=== PATIENT | male | born 1930 | race Caucasian/White ===

== ENCOUNTER 2016-05-13 19:16 | Emergency (ER) | payer MEDICARE, OTHER ==
[~2016-05-13] VITALS: Ht 176.5 cm; Wt 90.9 kg
[2016-05-13 19:22] VITALS: BP 137/77; PULSE 64; RESP 17; O2SAT 95
--- NOTE | 2016-05-13 19:39 | ED.REPORT ---
HPI-Abd Pain M 40 and Over Date of Service May 13, 2016 ED Provider: Norbert Funk MD Patient is a 86 year old male with a history of ulcerative colitis who presents to the ED after he developed abdominal pain, vomiting, and diarrhea this morning. His pain is cramping in character and extends throughout his entire lower abdomen. His abdomen is more distended than usual. He reports multiple episodes of diarrhea (4x today) and vomiting since onset. His last episode of diarrhea was at 5pm. He repots persistent nausea. He took the medication he had at home for nausea, but he vomited it up. Patient was unable to hold down any fluids. The patient states that he had a similar brief episode 3 weeks ago, but it resolved very quickly. He also reports having a stabbing pain to his right lower back. Patient also admits to diaphoresis and subjective fever but denies any bloody stool or hematemesis. He denies any previous abdominal surgeries. The patient is meant to fly down to [place] tomorrow morning. Nursing Notes Stated Complaint: VOMITING/DIARRHEA Chief Complaint: Male Abdominal Pain Nursing Notes Reviewed: Yes Allergies: Coded Allergies: isometheptene (Verified Allergy, Unknown, 05/13/16) acetaminophen (Verified Adverse Reaction, Intermediate, Nausea,Vomiting, ) dichloralphenazone (Verified Adverse Reaction, Intermediate, Nausea, Vomiting, 05/13/16) Scheduled PRN Ondansetron ODT (Zofran ODT) 4 Mg Tablet 4 MG PO Q4H PRN PRN For Nausea General Time Seen by MD: 19:37 Chief Complaint Abdominal pain, Diarrhea moderate, Other (vomiting) Hx Obtained From: Patient Arrived By: Walk-in Sudden in Onset?: No Onset Occurred: 17 - 20 hours ago Symptom Duration: Since onset Progression since Onset: Waxes and wanes Location: : Abdomen lower Quality: Dull, Painful Severity: Current: Moderate Severity: Maximum: Moderate Recent Healthcare: No recent doctor visit, No recent hospitalization Similar Sx Previous: Yes Past Medical History Past Medical History ulcerative colitis hypothyroidism kidney stones Denies: Diabetes mellitus Denies: Renal failure Past Surgical History bilateral knee surgery elbow surgery TURP right ulnar nerve transposition Smoking History Former Smoker Social History Alcohol Use: 1-3 per day Other Social History: Good social support, , Local resident Ambulatory Status Independent Review of Systems Constitutional: Reports: Fever (subjective), Denies: Chills GI: Reports: Abdominal pain, Diarrhea, Nausea, Vomiting, Denies: Bloody/tarry stool, Hematemesis, Hematochezia Male: Reports Flank pain Complete sys rev & neg: except as marked. Skin: Reports Diaphoresis Physical Exam Initial Vital Signs Vital Signs (First) Date Time Temp Pulse Resp B/P Pulse Ox O2 Delivery O2 Flow Rate FiO2 05/13/16 19:22 36.5 64 17 137/77 95 Initial VS: Reviewed Head / Eyes: Normocephalic, PERRL ENT: Mucous membranes moist, Conjunctiva normal, No scleral icterus Neck: Full range of motion Extremities: Vascular intact, Neuro intact, No swelling Skin: Warm, Dry, No cyanosis Neurologic: Alert, Oriented, Nonfocal Psychiatric: Mood/affect normal, Behavior normal, Normal thought content General/Constitutional: Awake, Alert, No acute distress Respiratory / Chest: Breath sounds NL, Breath sounds = bilat, No respiratory distress, No rales, No rhonchi, No wheezing Cardiovascular: Heart rate NL, Regular rhythm, Heart sounds NL, No gallop, No murmurs, No rubs Abdomen: Soft, No guarding, No rebound Tenderness/Guarding/Rebound: Positive: Tender diffuse Bowel Sounds / Distention: Positive: Bowel sounds hyperactive, Distention mild Back: Atraumatic, No CVA tenderness Interpretation & Diagnostics Interpretation & Diagnostics: Urine Dip: pH 5, all else within normal limits. Lab Results Interpretation Result Diagram: 05/13/16200405/13/162004 Test 05/13/16 20:05 05/13/16 22:15 White Blood Count 7.0th/mm3 (3.8-10.1) Red Blood Count 4.17mil/mm3 (4.40-5.80) Hemoglobin 13.1g/dL (13.8-17.2) Hematocrit 38.2% (41.0-50.0) Mean Corpuscular Volume 91.6fL (81-100) Mean Corpuscular Hemoglobin 31.4pg (27.0-35.0) Mean Corpuscular Hemoglobin Concent 34.3% (32.0-37.0) Red Cell Distribution Width 15.0% (12.3-15.4) Platelet Count 139bil/L (150-400) Neutrophils (%) (Auto) 78.8% (40-74) Lymphocytes (%) (Auto) 6.3% (14-46) Monocytes (%) (Auto) 13.5% (4-12) Eosinophils (%) (Auto) 0.9% (0-5) Basophils (%) (Auto) 0.1% (0-3) Sodium Level 140mEq/L (134-144) Potassium Level 4.3mEq/L (3.5-5.2) Chloride Level 104mEq/L (97-108) Carbon Dioxide Level 24mmol/L (18-29) Blood Urea Nitrogen 13mg/dL (8-27) Creatinine 0.90mg/dL (0.76-1.27) Estimat Glomerular Filtration Rate 85mL/min (>59) Glucose Level 163mg/dL (60-99) Calcium Level 9.0mg/dL (8.5-10.1) Magnesium Level 2.2mg/dL (1.6-2.6) Total Bilirubin 0.6mg/dL (0.0-1.2) Aspartate Amino Transf (AST/SGOT) 23U/L (0-50) Alanine Aminotransferase (ALT/SGPT) 15U/L (0-44) Alkaline Phosphatase 82U/L (25-160) Total Protein 6.9g/dL (6.4-8.4) Albumin 4.2g/dL (3.4-5.0) Lipase 18U/L (13-60) Hold [employer] Top Tube Received (Received) Urine Color Straw (YELLOW) Urine Appearance Clear (CLEAR,HAZY) Urine pH 6.0 (5.0-8.0) Urine Specific [place] 1.005 (1.003-1.035) Urine Protein Negativemg/dL (NEG,TRACE) Urine Glucose (UA) Negativemg/dL (NEGATIVE) Urine Ketones Negativemg/dL (NEGATIVE) Urine Occult Blood Trace (NEGATIVE) Urine Nitrite Negative (NEGATIVE) Urine Bilirubin Negative (NEGATIVE) Urine Urobilinogen Normalmg/dL (NORMAL) Urine Leukocyte Esterase Negative (NEGATIVE) Urine RBC 0-2/hpf (0-2) Urine WBC 0-5/hpf (0-5) Urine Epithelial Cells Occasional/hpf (NONE-MOD) Urine Crystals None seen (NONE SEEN) Urine Bacteria None/hpf (NONE-FEW) Urine Hyaline Casts None/lpf (NONE) Urine Granular Casts None seen (NONE SEEN) Urine Waxy Casts None seen (NONE SEEN) Urine Red Blood Cell Casts None seen (NONE SEEN) Urine White Blood Cell Casts None seen (NONE SEEN) Urine Mucus None seen (None Seen) Urine Trichomonas None seen (NONE SEEN) Urine Yeast None (NONE SEEN) Urine Culture Reflexed Not indicated CT Abd / Pelvis Interpretation IMPRESSION: 1. Diverticulosis without acute diverticulitis. 2. No definite acute intra-abdominal abnormality to correlate with patient's pain symptoms. Dictated by: Timothy Browne M.D. on 05/13/2016 at 22:03 Approved by: Timothy Browne M.D. on 05/13/2016 at 22:03 Study type: Abdominal CT no contrast Interpretation / Wet Read by: Interpret - Radiologist Re-Eval/Medical Decision Source of Hx: Old records Time of Eval: 23:15 Patient Status: Condition improved, Drinking well without N/V Re-Evaluation/Progress Note: Rechecked the patient, who was informed that his labs and CT scan were normal. He will be given nausea medication. Patient understands and agrees with the plan to be discharged home. Discharge instructions and follow-up discussed. All questions were addressed. Return to the ED warnings given. Counseled Regarding: Diagnosis, Lab results, Need for follow-up, When/why to return to ED Discharge & Departure Primary Impression: Generalized abdominal pain Additional Impression: Gastroenteritis Disposition: Home Vital Signs - All Vital Signs Date Time Temp Pulse Resp B/P Pulse Ox O2 Delivery O2 Flow Rate FiO2 05/13/16 19:22 36.5 64 17 137/77 95 )( All Prior VS Reviewed: Yes Condition: Stable Patient Instructions: Acute Diarrhea (ED), Acute Nausea and Vomiting (ED) Additional Instructions: Emergency department evaluation today included interview, examination, review of old records, CT scan of your abdomen, and laboratory evaluation. Use Ondansetron as needed for nausea. You can use Imodium for your diarrhea. Make sure you drink plenty of fluids. Follow-up with Dr. Elaine if your symptoms do not improve in the next day. Return to the emergency department if you developed any new or concerning symptoms. Referrals: Abiodun Elaine MD (PCP) Scribe Attestation Portions of this note were transcribed by Eneida Alfred. I, Dr. Funk personally performed the history, physical exam and medical decision-making; I reviewed and confirmed the accuracy of the information in the transcribed note. Signed by: Dwight Cronin, 05/13/2016 [id number] copies to: Abiodun Elaine MD, Donald L MD May 13, 2016 19:39 Eneida Alfred May 13, 2016 19:52
[2016-05-13] MEDS ORDERED: Ondansetron 2 mg/mL 2 mL Inj IVPUSH PRN (19:55)
[2016-05-13] MEDS ORDERED: HYDROmorphone 0.5 mg/0.5 mL iSecure Syringe IVPUSH PRN (19:55)
[2016-05-13 20:14] LABS: BASOPHILS % (AUTO) 0.1 % (0-3); EOSINOPHILS % (AUTO) 0.9 % (0-5); MONOCYTES % (AUTO) 13.5 % (4-12); Mean Corpuscular Hemoglobin 31.4 pg (27.0-35.0); Mean Corpuscular Volume 91.6 fL (81-100); NEUTROPHILS % (AUTO) 78.8 % (40-74); Platelet Count 139 bil/L (150-400)
[2016-05-13] MEDS ORDERED: 0.9% Sodium Chloride 1,000 ML IV ONE (20:25)
[2016-05-13 20:34] LABS: Magnesium 2.2 mg/dL (1.6-2.6)
--- NOTE | 2016-05-13 22:05 | DRSVH ---
PROCEDURE: CT ABDOMEN AND PELVIS WITH CONTRAST ([id number]) INDICATIONS: Abdominal pain. TECHNIQUE: After the administration of oral and intravenous contrast, 5 mm thick sections acquired from the diap hragms to the symphysis. 5 mm thick coronal and sagittal reformats were performed. For radiation do se reduction, the following was used: automated exposure control, adjustment of mA and/or kV accordi ng to patient size. COMPARISON: [facility], CT, ABD/PELVIS W/CON ([facility]), 04/05/2014, 16:39. FINDINGS: Image quality: There is extensive metallic streak artifact associated with patient's right hip prosth esis limiting evaluation. ABDOMEN: Lung bases: There is bibasilar atelectasis and scarring in the lung bases. Heart size is normal. Solid organs: There is hypoattenuation of the liver consistent with fatty infiltration. The spleen i s normal in size. Gallbladder appears within normal limits. Biliary system is non-dilated. There i s mild fatty atrophy in the uncinate process of the pancreas. No pancreatic duct dilatation. No adr enal nodules. Kidneys are normal in size and enhancement, without hydronephrosis. Peritoneum and bowel: Stomach and small bowel loops are normal in caliber and wall thickness. The a ppendix is normal in appearance. There is colonic diverticulosis without acute diverticulitis. Mild segmental wall thickening in the sigmoid colon is likely related to incomplete distention. No free fluid or air. Nodes and vessels: No retroperitoneal or mesenteric adenopathy. Aorta and inferior vena cava are no rmal in caliber. Miscellaneous: There is a small fat containing umbilical hernia. PELVIS: Genitourinary: Bladder wall thickness is normal. Miscellaneous: No inguinal hernias or adenopathy. Bones: No suspicious bony lesions. No vertebral body compression fractures. IMPRESSION: 1. Diverticulosis without acute diverticulitis. 2. No definite acute intra-abdominal abnormality to correlate with patient's pain symptoms. Dictated by: Timothy Browne M.D. on 05/13/2016 at 22:03 Approved by: Timothy Browne M.D. on 05/13/2016 at 22:03
[2016-05-13] MEDS ORDERED: ONDA4TAB9 PO (23:23)
[2016-05-13 23:35] LABS: APPEARANCE,URINE CLEAR (CLEAR,HAZY); COLOR,URINE STRAW (YELLOW); OCCULT BLOOD,URINE TRACE (NEGATIVE); UROBILINOGEN,URINE NORMAL (NORMAL)
[2016-05-14 00:03] VITALS: BP 135/75; PULSE 65; RESP 16; O2SAT 93
== END 2016-05-13 23:35 | disposition home or self-care (01) ==
LOC: SED 19:16
DX: K52.9 Noninfective gastroenteritis and colitis, unspecified (principal); K57.90 Diverticulosis of intestine, part unspecified, without perforation or abscess without bleeding; K51.90 Ulcerative colitis, unspecified, without complications; E03.9 Hypothyroidism, unspecified; Z87.442 Personal history of urinary calculi; Z87.891 Personal history of nicotine dependence; Z88.8 Allergy status to other drugs, medicaments and biological substances; Z88.6 Allergy status to analgesic agent
CPT/HCPCS: 36415; 74177; 80053; 81000; 83690; 83735; 85025; 96374; 96375; 99285; J1170; J2405; J7030; Q9967